=== PATIENT | male | born 1955 | race African-American/Black ===

== ENCOUNTER 2019-05-18 10:39 | Outpatient (CLI) | payer MEDICARE ==
--- NOTE | 2019-05-18 13:11 | RAD ---
RADIOGRAPH CERVICAL SPINE 4 VIEWS: 05/18/2019 HISTORY: A 64-year-old male with cervical spondylolisthesis, M43.10. COMPARISON: None. TECHNIQUE: Four lateral views in neutral, flexion, extension and Swimmer's views. No AP view. FINDINGS: Anterior metallic plate and screws at C5 and C6. Tiny metallic markers for interbody cage, inferior t o the C5 vertebral body. Anterior wedge compression fracture deformity of C6 with significant loss o f height of the anterior-superior third of the vertebral body. Grade 2 anterolisthesis of C5 on C6. A nterior subluxation of the C5 facet complex relative to the C6 facet complex with perched facets, at least on one side. Moderate to severe degenerative disk disease at C6-C7. The C7-T1 junction is partially obscured by the shoulders on the Swimmer's view and is completely obs cured on all other views. Multilevel high-grade facet DJD, especially at upper and mid levels. C2-C3, C3-C4, C4-C5: Disk spaces are maintained. No high-grade prevertebral soft tissue thickening. N o instability identified between flexion and extension. IMPRESSION: 1. Nonacute fracture-subluxation at C5-C6, consisting of the followin. Perched facets (cannot rule out jumped facets. Recommend noncontrast CT). 3. Grade 2 anterolisthesis of C5 on C6. 4. Compression fracture of C6 vertebral body. 5. Status post anterior cervical diskectomy and fusion at C5-C6. JN [] POS: [facility]PC
== END 2019-05-18 10:40 | disposition home or self-care (01) ==
LOC: TBSIIMAG 10:39
PROVIDERS: ATTEND Neurological Surgery
DX: M43.12 Spondylolisthesis, cervical region (principal); M48.52XA Collapsed vertebra, not elsewhere classified, cervical region, initial encounter for fracture; Z98.1 Arthrodesis status
CPT/HCPCS: 72040

== ENCOUNTER 2024-12-04 10:58 | Emergency (ER) | payer OTHER, MEDICAID | END 2024-12-04 11:56 | disposition home or self-care (01) | LOC: ERS 10:58 | DX: Z48.815 Encounter for surgical aftercare following surgery on the digestive system (principal); I10 Essential (primary) hypertension; F17.210 Nicotine dependence, cigarettes, uncomplicated | CPT/HCPCS: 99282 ==